=== PATIENT | female | born 1965 | race Caucasian/White ===

== ENCOUNTER 2019-07-20 08:20 | Emergency (ER) | payer SELFPAY ==
[~2019-07-20] VITALS: Ht 170.2 cm; Wt 73.9 kg
[2019-07-20 10:26] VITALS: BP 151/82
[2019-07-20] MEDS ORDERED: HYDROcodone-ACET 5/325MG TAB PO ONE (10:45)
== END 2019-07-20 11:00 | disposition home or self-care (01) ==
LOC: ER 08:20
DX: B02.9 Zoster without complications (principal); F17.210 Nicotine dependence, cigarettes, uncomplicated

== ENCOUNTER 2021-09-10 16:14 | Emergency (ER) | payer SELFPAY ==
[~2021-09-10] VITALS: Ht 170.2 cm; Wt 68.0 kg
[2021-09-10 19:37] VITALS: BP 135/75
[2021-09-10 20:00] LABS: Basophils # (auto) 0.1 10 ^3/uL (0-0.2); Basophils % (auto) 0.8 % (0.0-2.0); Eosinophils # (auto) 0.1 10 ^3/uL (0-0.8); Eosinophils % (auto) 0.7 % (0.0-7.0); Hematocrit 41.3 % (36.0-46.0); Hemoglobin 14.2 g/dL (12.2-16.2); Lymphocytes % (auto) 23.7 % (10.0-50.0); Mean Corpuscular Hemoglobin 29.9 pg (28.0-32.0); Mean Corpuscular Hgb Conc. 34.3 g/dL (32.0-36.0); Mean Corpuscular Volume 87.3 fL (80.0-100.0); Monocytes # (auto) 0.5 10 ^3/uL (0-1.3); Monocytes % (auto) 4.3 % (0.0-12.0); Neutrophils # (auto) 8.8 10 ^3/uL (1.6-8.6); Neutrophils % (auto) 70.5 % (37.0-80.0); Nucleated Red Blood Cells % 0.1 %; Red Blood Cells 4.73 10^6/uL (4.0-5.20); Red Cell Distribution Width 13.5 % (11.8-14.3); White Blood Cell 12.5 10^3/uL (4.4-10.8)
[2021-09-10 20:16] LABS: Calcium 9.7 mg/dL (8.5-10.1); Potassium 3.9 mmol/L (3.5-5.1)
[2021-09-10 20:18] LABS: Albumin 4.1 g/dL (3.4-5.0); BUN/Creatinine Ratio 20.2
[2021-09-10 20:20] LABS: Bilirubin, Total 0.2 mg/dL (0.2-1.0); Total Protein 8.1 g/dL (6.4-8.2)
[2021-09-10] MEDS ORDERED: KETOROLAC TROMETH 60MG/2ML VIAL IM ONE (20:45)
[2021-09-10] MEDS ORDERED: NITR-87 PO (23:34)
[2021-09-10] MEDS ORDERED: IBU600T PO (23:34)
== END 2021-09-10 23:49 | disposition home or self-care (01) ==
LOC: ER 16:14
DX: R10.31 Right lower quadrant pain (principal); D72.829 Elevated white blood cell count, unspecified; E86.0 Dehydration; F17.210 Nicotine dependence, cigarettes, uncomplicated
CPT/HCPCS: 36415; 74176; 80053; 85025; 96372; 99284; J1885; 93005

== ENCOUNTER 2023-02-15 17:45 | Emergency (ER) | payer OTHER ==
[~2023-02-15] VITALS: Ht 167.6 cm; Wt 68.2 kg
[~2023-02-15 17:45] MED LIST: IBU600T PO; NITR-87 PO
[2023-02-15 18:00] VITALS: TEMP 98.3
[2023-02-15] MEDS ORDERED: ACET500T58 PO (21:24)
[2023-02-15] MEDS ORDERED: SULF800T23 PO (21:24)
[2023-02-15] MEDS ORDERED: cefTRIAXone SOD 1,000 MG VL IM ONE (21:30)
[2023-02-15 22:12] LABS: Urine Bacteria FEW /hpf (None Seen); Urine Blood 2+ /uL (Negative); Urine Clarity Clear (Clear); Urine Color Brown (Yellow); Urine Protein, UAD Negative (Negative); Urine Specific Gravity 1.006 (1.001-1.035); Urine WBC 16 /hpf (0 - 5)
[2023-02-15 22:30] VITALS: BP 132/72; PULSE 80; RESP 18; O2SAT 98
== END 2023-02-15 22:37 | disposition home or self-care (01) ==
LOC: ER 17:45
DX: N39.0 Urinary tract infection, site not specified (principal); F17.210 Nicotine dependence, cigarettes, uncomplicated; Z79.899 Other long term (current) drug therapy; Z98.51 Tubal ligation status
CPT/HCPCS: 81001; 96372; 99283; J0696